=== PATIENT | male | born 1980 | race Hispanic/Latino ===

== ENCOUNTER 2017-12-30 21:09 | Emergency (ER) | payer OTHER, MEDICARE | END 2017-12-30 22:42 | disposition left against medical advice (07) | LOC: EDH 21:09 | DX: M79.652 Pain in left thigh (principal); I10 Essential (primary) hypertension; Z53.21 Procedure and treatment not carried out due to patient leaving prior to being seen by health care provider ==

== ENCOUNTER 2018-01-26 17:52 | Emergency (ER) | payer OTHER, MEDICARE ==
[2018-01-26] MEDS ORDERED: ASPIRIN 325 MG TABLET ONE (18:16)
[2018-01-26 18:31] LABS: BASOPHILS % (AUTO) 0.6 % (0.0-5.0); EOSINOPHILS % (AUTO) 1.2 % (0.0-8.0); HEMATOCRIT 42.1 % (42-54); LYMPHOCYTES % (AUTO) 33.2 % (21.0-51.0); MEAN CORPUSCULAR HEMOGLOBIN 30.5 pg (27.0-33.0); MEAN CORPUSCULAR HGB CONC 34.2 g/dL (32.0-36.0); MEAN CORPUSCULAR VOLUME 89.2 fL (79-99); MONOCYTES % (AUTO) 9.9 % (3.0-13.0); NEUTROPHILS % (AUTO) 55.1 % (40.0-77.0); PLATELET COUNT (AUTO) 223 K/uL (130-400); RED BLOOD CELL COUNT(AUTO) 4.72 MIL/uL (4.50-6.20); RED CELL DISTRIBUTION WIDTH 13.1 % (11.0-15.5)
[2018-01-26 18:40] LABS: CREATININE 0.8 mg/dL (0.5-1.5); POTASSIUM 3.9 mmol/L (3.5-5.1)
[2018-01-26 18:43] LABS: INR 0.94 (0.85-1.15); PROTHROMBIN TIME 9.9 SEC (9.6-11.6)
[2018-01-26 18:48] LABS: AMPHET/METH SCREEN,URINE NEGATIVE (NEGATIVE); BARBITURATE SCREEN, URINE NEGATIVE (NEGATIVE); BENZODIAZEPINES SCREEN,URINE NEGATIVE (NEGATIVE); CANNABINOID SCREEN,URINE NEGATIVE (NEGATIVE); COCAINE SCREEN,URINE NEGATIVE (NEGATIVE); OPIATE SCREEN,URINE NEGATIVE (NEGATIVE); PHENCYCLIDINE SCREEN,URINE NEGATIVE (NEGATIVE)
[2018-01-26 18:54] LABS: ALBUMIN 3.7 g/dL (3.5-5.0); BILIRUBIN,TOTAL 0.2 mg/dL (0.2-1.0); CREATINE KINASE MB 0.5 ng/mL (0.5-3.6); TOTAL PROTEIN, SERUM 7.6 g/dL (6.0-8.3)
[2018-01-26 18:55] LABS: B-TYPE NATRIURETIC PEPTIDE 7 pg/mL (0-100)
== END 2018-01-26 19:15 | disposition home or self-care (01) ==
LOC: EDH 17:52
DX: R07.89 Other chest pain (principal); I10 Essential (primary) hypertension
CPT/HCPCS: 36415; 71045; 80053; 80305; 82550; 82553; 83874; 83880; 84484; 85025; 85610; 85730; 93005; 94761

== ENCOUNTER 2018-04-20 00:34 | Emergency (ER) | payer MEDICARE, OTHER ==
[2018-04-20 00:55] LABS: APPEARANCE,URINE Clear (CLEAR); BILIRUBIN,URINE Small (NEGATIVE); COLOR,URINE Dark Yellow (YELLOW); GLUCOSE, URINE (UA) Negative (NEGATIVE); KETONES,URINE Trace mg/dL (NEGATIVE); LEUKOCYTE ESTERASE ,URINE Negative (NEGATIVE); NITRATE,URINE Negative (NEGATIVE); OCCULT BLOOD,URINE Negative (NEGATIVE); PROTEIN,URINE Trace (NEGATIVE)
[2018-04-20] MEDS ORDERED: LORAZEPAM 2 MG/ML 1 ML VIAL ONE (01:05)
[2018-04-20 01:15] LABS: WBC,URINE 0-1 /HPF (0-1)
[2018-04-20 01:16] LABS: BACTERIA,URINE Few /HPF (None Seen)
[2018-04-20 01:19] LABS: CALCIUM OXALATE CRYSTALS,UR Few /LPF (None Seen); MUCUS,URINE Moderate LPF (None Seen)
[2018-04-20 01:22] LABS: AMPHET/METH SCREEN,URINE NEGATIVE (NEGATIVE); BARBITURATE SCREEN, URINE NEGATIVE (NEGATIVE); BENZODIAZEPINES SCREEN,URINE NEGATIVE (NEGATIVE); CANNABINOID SCREEN,URINE NEGATIVE (NEGATIVE); COCAINE SCREEN,URINE NEGATIVE (NEGATIVE); OPIATE SCREEN,URINE POSITIVE (NEGATIVE); PHENCYCLIDINE SCREEN,URINE NEGATIVE (NEGATIVE)
== END 2018-04-20 02:13 | disposition home or self-care (01) ==
LOC: EDH 00:34
DX: M54.5 Low back pain (principal); I10 Essential (primary) hypertension
CPT/HCPCS: 80305; 81001; 96372; 99284; J2060

== ENCOUNTER 2019-03-20 23:37 | Emergency (ER) | payer BC, OTHER ==
[2019-03-21] MEDS ORDERED: KETOROLAC TROMETHAMINE 60 MG/2 ML VIAL ONE (00:29)
[2019-03-21] MEDS ORDERED: LIDOCAINE 5% TOPICAL PATCH TP ONE (00:30)
== END 2019-03-21 01:13 | disposition home or self-care (01) ==
LOC: EDH 23:37
DX: R07.89 Other chest pain (principal); M62.838 Other muscle spasm; I10 Essential (primary) hypertension; F41.9 Anxiety disorder, unspecified
CPT/HCPCS: 71046; 93005; 96372; 99284; J1885

== ENCOUNTER 2019-10-07 22:55 | Emergency (ER) | payer BC | END 2019-10-07 23:29 | disposition home or self-care (01) | LOC: EDH 22:55 | DX: S33.5XXA Sprain of ligaments of lumbar spine, initial encounter (principal); I10 Essential (primary) hypertension; F41.9 Anxiety disorder, unspecified; F32.9 Major depressive disorder, single episode, unspecified; X50.0XXA Overexertion from strenuous movement or load, initial encounter; Y93.89 Activity, other specified; Y92.89 Other specified places as the place of occurrence of the external cause; Y99.8 Other external cause status | CPT/HCPCS: 99281 ==

== ENCOUNTER 2020-08-19 00:36 | Emergency (ER) | payer BC ==
[2020-08-19 00:58] LABS: BASOPHILS % (AUTO) 0.4 % (0.0-5.0); HEMATOCRIT 43.8 % (42-54); LYMPHOCYTES % (AUTO) 39.8 % (21.0-51.0); MEAN CORPUSCULAR HEMOGLOBIN 30.5 pg (27.0-33.0); MEAN CORPUSCULAR VOLUME 89.8 fL (79-99); MONOCYTES % (AUTO) 8.7 % (3.0-13.0); PLATELET COUNT (AUTO) 229 K/uL (130-400); RED BLOOD CELL COUNT(AUTO) 4.88 MIL/uL (4.50-6.20); RED CELL DISTRIBUTION WIDTH 12.1 % (11.0-15.5); WHITE BLOOD COUNT (AUTO) 6.9 K/uL (4.8-10.8)
[2020-08-19 01:06] LABS: CREATININE 0.9 mg/dL (0.5-1.5)
[2020-08-19 01:11] LABS: BILIRUBIN,TOTAL 0.3 mg/dL (0.2-1.0); TOTAL PROTEIN, SERUM 7.6 g/dL (6.0-8.3)
[2020-08-19] MEDS ORDERED: ACETAMINOPHEN EXTRA STRENGTH 500 MG TABLET ONE (02:22)
== END 2020-08-19 04:23 | disposition home or self-care (01) ==
LOC: EDH 00:36
DX: M79.602 Pain in left arm (principal); F41.9 Anxiety disorder, unspecified; F32.9 Major depressive disorder, single episode, unspecified; I10 Essential (primary) hypertension; Z87.891 Personal history of nicotine dependence
CPT/HCPCS: 36415; 80053; 84484; 85025; 93005

== ENCOUNTER 2020-10-13 05:37 | Observation (INO) | payer BC, OTHER ==
[~2020-10-13] VITALS: Ht 165.1 cm; Wt 123.4 kg
[2020-10-13] MEDS ORDERED: KETOROLAC TROMETHAMINE 30MG/ML ONE ×2 (05:54→14:57)
[2020-10-13 05:58] LABS: BASOPHILS % (AUTO) 0.3 % (0.0-5.0); EOSINOPHILS % (AUTO) 0.6 % (0.0-8.0); LYMPHOCYTES % (AUTO) 16.5 % (21.0-51.0); MEAN CORPUSCULAR HEMOGLOBIN 30.1 pg (27.0-33.0); MEAN CORPUSCULAR HGB CONC 33.6 g/dL (32.0-36.0); MEAN CORPUSCULAR VOLUME 89.6 fL (79-99); MONOCYTES % (AUTO) 11.4 % (3.0-13.0); NEUTROPHILS % (AUTO) 70.8 % (40.0-77.0); PLATELET COUNT (AUTO) 186 K/uL (130-400); RED BLOOD CELL COUNT(AUTO) 5.02 MIL/uL (4.50-6.20); RED CELL DISTRIBUTION WIDTH 12.1 % (11.0-15.5); WHITE BLOOD COUNT (AUTO) 7.2 K/uL (4.8-10.8)
[2020-10-13] MEDS ORDERED: MORPHINE SULFATE 4 MG/1ML SYG ONE (06:02)
[2020-10-13] MEDS ORDERED: ONDANSETRON HCL 4 MG/2 ML VIAL ONE (06:02)
[2020-10-13] MEDS ORDERED: METHYLPREDNISOLONE SOD SUCC 125MG/2ML VIAL ONE (06:02)
[2020-10-13 06:17] LABS: ALBUMIN 3.2 g/dL (3.5-5.0); BILIRUBIN,TOTAL 0.3 mg/dL (0.2-1.0); CREATININE 0.8 mg/dL (0.5-1.5); POTASSIUM 3.4 mmol/L (3.5-5.1); TOTAL PROTEIN, SERUM 7.3 g/dL (6.0-8.3)
[2020-10-13] MEDS ORDERED: MORPHINE SULFATE 4 MG/1ML SYG IVP PRN (11:15)
[2020-10-13] MEDS ORDERED: MORPHINE SULFATE 2 MG/ML 1ML SYG IVP PRN (11:15)
[2020-10-13] MEDS ORDERED: ACETAMINOPHEN 325 MG TAB PO PRN (11:15)
[2020-10-13] MEDS ORDERED: ACETAMINOPHEN 650 MG SUPPOSITORY RC PRN (11:15)
[2020-10-13] MEDS ORDERED: CLONIDINE HCL 0.1 MG TABLET PO PRN (11:15)
[2020-10-13] MEDS ORDERED: DOCUSATE SODIUM 100 MG CAP PO PRN (11:15)
[2020-10-13] MEDS ORDERED: MORPHINE SULFATE 2 MG/ML 1ML SYG ONE (12:56)
[2020-10-13] MEDS: KETOROLAC TROMETHAMINE 30MG/ML IM SCH ×2 (14:15→22:26)
[2020-10-13] MEDS ORDERED: GADODIAMIDE 10 MMOL/20 ML VIAL IV ONE (14:54)
[2020-10-13 15:27] VITALS: BP 109/54
--- NOTE | 2020-10-13 16:45 | NUR ---
PATIENT IN BED LAYING SUPINE WITH HOB FLAT. DENIES HAVING ANY PAIN AT THE MOMENT, STATES HIS PAIN INCREASED TO A 7 WHEN HE TRIED TO GET UP IN THE ER. DURING ADMISSION PATIENT STATES HE AND HIS FAMILY WERE SWABBED FOR COVID19 10/12/20 AT A TESTING SITE. STATES HE WAS NOT EXPOSED BUT WORKS IN THE [employer] AND WANTED TO TAKE PRECAUTION. RESULTS STILL PENDING. PATIENT DENIES HAVING SOB, FEVER AND COUGH.
[2020-10-13] MEDS ORDERED: VITA100012 PO (17:04)
[2020-10-13] MEDS ORDERED: [UNRECOGNIZED DRUG - OTHER] (17:04)
[2020-10-13] MEDS ORDERED: CYAN250010 PO (17:04)
[2020-10-13] MEDS ORDERED: CYCL10TA7 PO (17:04)
[2020-10-13] MEDS ORDERED: ACET1TAB25 PO (17:04)
[2020-10-13] MEDS ORDERED: CLON1TAB12 PO (17:04)
[2020-10-13] MEDS ORDERED: LOSA1TAB42 PO (17:04)
[2020-10-13] MEDS ORDERED: FISH (17:04)
--- NOTE | 2020-10-13 17:40 | NUR ---
INITIAL PHYSICAL ASSESSMENT DONE BY KELLI CLARK
[2020-10-13 20:23] VITALS: BP 116/65
[2020-10-13] MEDS: TRAMADOL HCL 50 MG TABLET PO PRN (20:25)
--- NOTE | 2020-10-13 20:40 | NUR ---
I had paged April PEREIRA TO[employer]KER BENCH via answering service, responded within a few minuted. Informed him of patient's MRI of the Spinal Canal, Lumbar, no new orders received.
[2020-10-13 23:44] VITALS: BP 103/50
[2020-10-14 04:02] VITALS: BP 112/63
[2020-10-14 05:50] LABS: BASOPHILS % (AUTO) 0.1 % (0.0-5.0); EOSINOPHILS % (AUTO) 1.2 % (0.0-8.0); HEMATOCRIT 42.4 % (42-54); LYMPHOCYTES % (AUTO) 14.9 % (21.0-51.0); MEAN CORPUSCULAR HEMOGLOBIN 30.2 pg (27.0-33.0); MEAN CORPUSCULAR HGB CONC 33.7 g/dL (32.0-36.0); MEAN CORPUSCULAR VOLUME 89.5 fL (79-99); MONOCYTES % (AUTO) 11.2 % (3.0-13.0); NEUTROPHILS % (AUTO) 72.4 % (40.0-77.0); PLATELET COUNT (AUTO) 204 K/uL (130-400); RED BLOOD CELL COUNT(AUTO) 4.74 MIL/uL (4.50-6.20); WHITE BLOOD COUNT (AUTO) 9.1 K/uL (4.8-10.8)
[2020-10-14 06:05] LABS: CREATININE 0.8 mg/dL (0.5-1.5); POTASSIUM 4.1 mmol/L (3.5-5.1)
[2020-10-14] MEDS: KETOROLAC TROMETHAMINE 30MG/ML IM SCH ×3 (06:08→22:03)
[2020-10-14 08:50] VITALS: BP 108/54
[2020-10-14] MEDS ORDERED: IBUP-2077 PO (10:48)
[2020-10-14] MEDS ORDERED: CYCL10 PO (10:48)
[2020-10-14 12:00] VITALS: BP 109/68
[2020-10-14] MEDS: TRAMADOL HCL 50 MG TABLET PO PRN ×2 (15:16→20:56)
[2020-10-14] MEDS: CYCLOBENZAPRINE HCL 10 MG TABLET PO PRN ×2 (15:16→20:50)
--- NOTE | 2020-10-14 19:02 | NUR ---
1254 PT NOTIFIED ME THAT HE WAS TESTED AT HIS PLACE OF EMPLOYMENT WORK FOR [employer] AND THEY CALLED HIM AND HE IS COVID POSITIVE.PT ASYMPTOMATIC, AFEBRILE, SPOUSE AT BEDSIDE, WAS GIVEN DC INSTRUCTIONS. 1404 CXR CHEST DONE. 1742 POST GIVING TRAMADOL, TORADOL AND FLEXERIL PT STILL CONTINUES IN PAIN BEFORE, REQUESTING MORPHINE, [employer] MACHINIST SET UP NOTIFIED,PT IS NOW ANXIOUS, ORDER TO TRANSFER TO COVID UNIT, NO FAMILY ABLE TO VISIT HAS BEEN EXPLAINED, IV STARTED, AND MORPHINE DCD AT 1750.
[2020-10-14 19:48] VITALS: BP 116/84
[2020-10-15] VITALS: BP 115/62
--- NOTE | 2020-10-15 00:46 | NUR ---
Report given to Kristyn PEREIRA in regards to patient's status. 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 Informed him patient was going to be discharged, but he insisted that he was not able to walk. So orders received to transfer to covid unit. Addendum: 10/15/20 at 0049 by TREY BAPTISTE RN RN Informed her patient asymptomatic. vital signs stable.
[2020-10-15 03:00] VITALS: BP 117/66
[2020-10-15] MEDS: KETOROLAC TROMETHAMINE 30MG/ML IM SCH (05:35)
[2020-10-15 07:30] VITALS: BP 123/69
[2020-10-15] MEDS: TRAMADOL HCL 50 MG TABLET PO PRN (08:36)
[2020-10-15] MEDS ORDERED: PRED10TA3 PO (09:20)
[2020-10-15] MEDS ORDERED: METHYLPREDNISOLONE SOD SUCC 40MG/ML 1ML IVP SCH (10:58)
--- NOTE | 2020-10-15 12:30 | NUR ---
DISCHARGE INSTRUCTION PROVIDED TO PATIENT ON MEDICATION ,COVID PRECAUTIONS AND TO FOLLOW UP BRETT ELENA . PATIENT VERBALIZED UNDERSTANDING
== END 2020-10-15 13:10 | disposition home or self-care (01) ==
LOC: EDH 05:37 → EDHIP 11:14 → 3DH 14:53 → 2AH 10-15 01:20
PROVIDERS: ADMIT Internal Medicine; ATTEND Internal Medicine
DX: M48.061 Spinal stenosis, lumbar region without neurogenic claudication (principal); M51.26 Other intervertebral disc displacement, lumbar region; I10 Essential (primary) hypertension; E66.01 Morbid (severe) obesity due to excess calories; F41.9 Anxiety disorder, unspecified; F32.9 Major depressive disorder, single episode, unspecified; Z79.899 Other long term (current) drug therapy; Z68.42 Body mass index [BMI] 45.0-49.9, adult
CPT/HCPCS: 36415 ×2; 71045; 72158; 72197; 74176; 80048; 80053; 85025 ×2; 96372 ×2; 96374; 96375; 96376; 99283; A4600; A9579; G0378 ×50; J1885 ×6; J2270 ×2; J2405; J2920; J2930

== ENCOUNTER 2021-01-10 23:19 | Emergency (ER) | payer BC ==
[~2021-01-10 23:19] MED LIST: ACET1TAB25 PO; CLON1TAB12 PO; CYAN250010 PO; CYCL10 PO; CYCL10TA7 PO; FISH; IBUP-2077 PO; LOSA1TAB42 PO; PRED10TA3 PO; VITA100012 PO; [UNRECOGNIZED DRUG - OTHER]
[2021-01-10 23:48] LABS: APPEARANCE,URINE Clear (CLEAR); BILIRUBIN,URINE Negative (NEGATIVE); COLOR,URINE Yellow (YELLOW); GLUCOSE, URINE (UA) Negative (NEGATIVE); KETONES,URINE Negative (NEGATIVE); LEUKOCYTE ESTERASE ,URINE Negative (NEGATIVE); NITRATE,URINE Negative (NEGATIVE); OCCULT BLOOD,URINE Negative (NEGATIVE); PH,URINE 6.5 (5.0-8.0); PROTEIN,URINE Negative (NEGATIVE); UROBILINOGEN,URINE 0.2 mg/dL (0.2-1.0)
[2021-01-10 23:59] LABS: BASOPHILS % (AUTO) 0.3 % (0.0-5.0); EOSINOPHILS % (AUTO) 1.1 % (0.0-8.0); HEMATOCRIT 44.8 % (42-54); LYMPHOCYTES % (AUTO) 39.8 % (21.0-51.0); MEAN CORPUSCULAR HGB CONC 33.7 g/dL (32.0-36.0); MEAN CORPUSCULAR VOLUME 89.1 fL (79-99); MONOCYTES % (AUTO) 10.2 % (3.0-13.0); NEUTROPHILS % (AUTO) 48.2 % (40.0-77.0); PLATELET COUNT (AUTO) 275 K/uL (130-400); RED BLOOD CELL COUNT(AUTO) 5.03 MIL/uL (4.50-6.20); RED CELL DISTRIBUTION WIDTH 12.2 % (11.0-15.5); WHITE BLOOD COUNT (AUTO) 7.2 K/uL (4.8-10.8)
[2021-01-11 00:16] LABS: INR 0.99 (0.85-1.15); PROTHROMBIN TIME 10.8 SEC (9.6-11.6)
[2021-01-11 00:17] LABS: PARTIAL THROMBOPLASTIN TIME 28.6 SEC (26.3-35.5)
[2021-01-11 00:39] LABS: CREATININE 0.9 mg/dL (0.5-1.5); POTASSIUM 3.7 mmol/L (3.5-5.1)
[2021-01-11 00:43] LABS: BILIRUBIN,TOTAL 0.3 mg/dL (0.2-1.0); TOTAL PROTEIN, SERUM 7.7 g/dL (6.0-8.3)
== END 2021-01-11 02:29 | disposition home or self-care (01) ==
LOC: EDH 23:19
DX: M94.0 Chondrocostal junction syndrome [Tietze] (principal); E66.01 Morbid (severe) obesity due to excess calories; F41.9 Anxiety disorder, unspecified; F32.9 Major depressive disorder, single episode, unspecified; I10 Essential (primary) hypertension; Z68.41 Body mass index [BMI] 40.0-44.9, adult
CPT/HCPCS: 36415; 71045; 80053; 81003; 82550; 84484; 85025; 85610; 85730; 93005

== ENCOUNTER → 2021-05-29 | Outpatient (CLI) | payer BC | END | disposition home or self-care (01) | LOC: RAH 13:47 | PROVIDERS: ATTEND Family Medicine | DX: R60.0 Localized edema (principal) | CPT/HCPCS: 93970 ==

== ENCOUNTER 2021-10-14 02:45 | Emergency (ER) | payer BC ==
[~2021-10-14] VITALS: Ht 165.1 cm; Wt 125.2 kg
[~2021-10-14 02:45] MED LIST changes: +CYCL-309 PO; -CYCL10 PO; +CYCL10TA16 PO; -CYCL10TA7 PO
[2021-10-14 02:58] VITALS: BP 154/93
[2021-10-14] MEDS ORDERED: MELO7.5T12 PO (03:49)
[2021-10-14] MEDS ORDERED: CYCL-309 PO (03:49)
[2021-10-14] MEDS ORDERED: LIDOP TP (03:49)
[2021-10-14] MEDS ORDERED: KETOROLAC 60 MG VIAL (30MG/ML) IM ONE (04:00)
[2021-10-14] MEDS ORDERED: ORPHENADRINE CITRATE 30 MG/ML ML IM ONE (04:00)
[2021-10-14] MEDS ORDERED: ORPHENADRINE CITRATE 30 MG/ML ML ONE (04:01)
[2021-10-14] MEDS ORDERED: KETOROLAC 60 MG VIAL (30MG/ML) ONE (04:01)
== END 2021-10-14 04:04 | disposition home or self-care (01) ==
LOC: EDH 02:45
DX: M62.830 Muscle spasm of back (principal); I10 Essential (primary) hypertension; Z79.1 Long term (current) use of non-steroidal anti-inflammatories (NSAID); Z79.52 Long term (current) use of systemic steroids; Z79.899 Other long term (current) drug therapy
CPT/HCPCS: 96372 ×2; 99284; J1885; J2360

== ENCOUNTER 2022-08-15 05:27 | Emergency (ER) | payer BC ==
[~2022-08-15] VITALS: Ht 165.1 cm; Wt 121.1 kg
[~2022-08-15 05:27] MED LIST changes: +ACET-2079 PO; -ACET1TAB25 PO; +LIDOP TP; +MELO7.5T12 PO
[2022-08-15 05:36] VITALS: BP 121/66
== END 2022-08-15 08:14 | disposition left against medical advice (07) ==
LOC: EDH 05:27
DX: M54.9 Dorsalgia, unspecified (principal); Z53.21 Procedure and treatment not carried out due to patient leaving prior to being seen by health care provider

== ENCOUNTER 2024-05-27 01:23 | Emergency (ER) | payer BC ==
[~2024-05-27] VITALS: Ht 165.1 cm; Wt 122.5 kg
[2024-05-27 02:08] LABS: BASOPHILS # (AUTO) 0.04 K/uL (0.00-0.20); BASOPHILS % (AUTO) 0.4 % (0.0-5.0); EOSINOPHILS # (AUTO) 0.03 K/uL (0.00-0.70); EOSINOPHILS % (AUTO) 0.3 % (0.0-8.0); HEMATOCRIT 47.6 % (42-54); IMMATURE GRANULOCYTE ABSOLUTE 0.04 K/uL (0-1); LYMPHOCYTES # (AUTO) 3.1 K/uL (1.0-4.8); LYMPHOCYTES % (AUTO) 30.9 % (21.0-51.0); MEAN CORPUSCULAR HEMOGLOBIN 30.3 pg (27.0-33.0); MEAN CORPUSCULAR HGB CONC 34.9 g/dL (32.0-36.0); MEAN CORPUSCULAR VOLUME 86.9 fL (79-99); MONOCYTES # (AUTO) 0.9 K/uL (0.1-1.0); MONOCYTES % (AUTO) 8.8 % (3.0-13.0); NEUTROPHILS # (AUTO) 5.8 K/uL (1.8-7.7); NEUTROPHILS % (AUTO) 59.2 % (40.0-77.0); PLATELET COUNT (AUTO) 299 K/uL (130-400); RED BLOOD CELL COUNT(AUTO) 5.48 MIL/uL (4.50-6.20); RED CELL DISTRIBUTION WIDTH 12.3 % (11.0-15.5); WHITE BLOOD COUNT (AUTO) 9.9 K/uL (4.8-10.8)
[2024-05-27 02:12] LABS: CREATININE 0.8 mg/dL (0.5-1.3); POTASSIUM 3.9 mmol/L (3.5-5.1)
[2024-05-27 02:54] VITALS: BP 113/74; PULSE 66; RESP 20; O2SAT 95
== END 2024-05-27 03:08 | disposition home or self-care (01) ==
LOC: EDH 01:23
DX: F43.0 Acute stress reaction (principal); R07.89 Other chest pain; I10 Essential (primary) hypertension; E78.00 Pure hypercholesterolemia, unspecified; Z79.899 Other long term (current) drug therapy; Z98.890 Other specified postprocedural states
CPT/HCPCS: 36415; 71045; 80048; 84484; 85025; 93005

== ENCOUNTER 2024-07-21 11:52 | Emergency (ER) | payer BC ==
[~2024-07-21] VITALS: Ht 165.1 cm; Wt 95.8 kg
[2024-07-21 11:53] VITALS: BP 140/90; PULSE 79; RESP 19; TEMP 98.1
== END 2024-07-21 12:02 | disposition left against medical advice (07) ==
LOC: EDH 11:52
DX: Z53.21 Procedure and treatment not carried out due to patient leaving prior to being seen by health care provider (principal); M25.511 Pain in right shoulder